=== PATIENT | male | born 2000 | race Caucasian/White ===

== ENCOUNTER 2019-10-25 07:46 | Day surgery (SDC) | payer BC ==
[2019-10-24 11:39] VITALS: BMI 37.3
[2019-10-25] MEDS ORDERED: Midazolam HCl 2 mg/2 ml Vial ONE ×2 (09:50→11:12)
[2019-10-25] MEDS ORDERED: Scopolamine 1.5 mg/72 hour Patch ONE (09:51)
[2019-10-25] MEDS ORDERED: Rocuronium Bromide 10 MG/ML (10ML VIAL) ONE (10:51)
[2019-10-25] MEDS ORDERED: Lidocaine 1% PF 5 ML VIAL ONE (10:51)
[2019-10-25] MEDS ORDERED: PROPOFOL 200 MG/20 ML VIAL ONE ×2 (10:51)
[2019-10-25] MEDS ORDERED: Dexamethasone 20 MG/5 ML VIAL ONE (10:51)
[2019-10-25] MEDS ORDERED: Glycopyrrolate 0.2 MG/ML 5 ML SYRINGE ONE (10:51)
[2019-10-25] MEDS ORDERED: Ondansetron PF 4 MG/2 ML Vial ONE (10:51)
[2019-10-25] MEDS ORDERED: Fentanyl 100 MCG/2 ML VIAL ONE (11:12)
[2019-10-25] MEDS ORDERED: HYDROmorphone 0.5 MG/0.5 ML SYRINGE ONE ×2 (11:12→14:04)
[2019-10-25] MEDS ORDERED: Lidocaine 1% w/Epinephrine 1:100K 20 ML VIAL ONE (11:14)
[2019-10-25] MEDS ORDERED: Bupivacaine 0.25% HCL 30 ML VIAL ONE (11:14)
[2019-10-25] MEDS ORDERED: Sodium Chloride 0.9% 0 ML ONE (11:15)
[2019-10-25] MEDS ORDERED: Bacitracin Zinc Ointment 30 gm TUBE ONE (11:15)
[2019-10-25] MEDS ORDERED: Ciprofloxacin 0.2% Otic 1 DROP CON ONE (11:15)
[2019-10-25] MEDS ORDERED: Propofol 500 MG/50 ML VIAL ONE (11:34)
[2019-10-25] MEDS ORDERED: Mupirocin 2% Ointment 22 GM Tube TOP SCH (12:00)
[2019-10-25] MEDS ORDERED: EPINEPHrine 1 MG/ML AMP ONE (12:15)
[2019-10-25] MEDS ORDERED: HYDROcodone/Acetaminophen 5/325 mg Tablet ONE (15:14)
--- NOTE | 2019-10-26 13:11 | OP ---
DATE OF PROCEDURE: 10/25/2019 PROCEDURE: Left tympanoplasty and left cartilage graft and right tympanoplasty and middle ear exploration. PROCEDURE IN DETAIL: Following induction of adequate general anesthetic, the patient's left ear was prepped and draped in a sterile fashion. The external canal and postauricular area were injected with 1% lidocaine with 1:100,000 epinephrine. The microscope was brought in and the ear canal was cleaned. The tympanic membrane was examined and found to have 60% perforation and included the pars tensa and extends into the pars flaccida. With the operative microscope, the area was cleaned of cerumen and suctioned and the rim of the perforation was scored. Next, a tympanomeatal flap was developed using the operative microscope and the round knife. The tympanic membrane was incised in the ear canal at the level of the ear canal anterolateral to the anulus. After the tympanomeatal flap was incised, the flap was elevated with the use of round knife and three suction. At this point, the anulus was viewed and a small incision was made in the middle ear mucosa using a Sarah needle and then a gimmick was used to elevate the tympanomeatal flap and the malleus was identified, as well as the chorda tympani with care taken not to dissect on the chorda tympani. The incudostapedial joint was also identified and significant scar bands were found in the middle ear, restricting the ossicular chain movement. At this point, the scar tissue and adhesions were lysed and removed and the ossicular chain was mobilized. Next, the rest of the tympanomeatal flap was elevated from the malleus anterolaterally and the entire view of the middle ear was inspected and the malleus was found to be in a retracted position. Attention was then turned towards the middle ear and small pieces of Gelfoam were used to fill the middle ear space to just medial to the level of the malleus and avoiding packing around the incudostapedial joint and the stapes. At this point, the operative microscope was removed and attention was directed toward the tragus. An incision was made on the medial posterior aspect of the tragus, transecting the skin and the cartilage. The cartilage was then freed from the adjacent tissues anterior and posteriorly with blunt dissection with iris scissors. A 1 cm2 area of cartilage with perichondrium was removed with iris scissors and with two forceps. The wound was then irrigated and no bleeding was seen, and then interrupted simple 5-0 fast-absorbing plain gut sutures were placed. The cartilage was then thinned and trimmed of the perichondrium to the appropriate dimensions and then to roughly 60% of its original thickness. The ear was found to have no bleeding and the eustachian tube and middle ear were still packed with Gel-Foam. The cartilage graft was then placed over the Gel-Foam and positioned, so that all the edges were covering the current perforation and were medial to the existing tympanic membrane remnant, however, lateral to the ossicles and all the middle ear contents. When the graft was properly positioned, the residual tympanic membrane was then replaced and all the edges were found to be close to the original incision location. At this point, a small patch of 2- layer A-cell was placed over the tympanic membrane and the entire perforation, and then Gel-Foam was packed over this area, this vascular strip and the external ear canal and then Bactroban ointment was placed and then more Gel-Foam packing was also placed. No bleeding was seen. At this point of the operation, the patient was tolerating the procedure well. The patient's drapes were then removed and the patient positioned toward the left side and the right ear was again prepped and draped in a sterile fashion using the same attention on the previous ear. The external ear canal was injected with 1% lidocaine with 1:100,000 epinephrine and the microscope was brought in and external ear canal cleaned, TM examined and found to have roughly 30% perforation. At this point, the Sarah needle was used to incise the perforation circumferentially and then an alligator and cupped forceps were used to remove small amount of tissue from the eardrum. The rest of pars tensa and pars flaccida were found to be healthy and intact. At this point, there was no bleeding seen on the eardrum. A small piece of two-layered A-cell was placed over the entire edge of the tympanic membrane covering the perforation entirely. Small bits of Gelfoam were then used to place and pack the graft in its place and then Bactroban ointment was also used to pack the rest of the external ear in order to keep the A-cell in place. The patient tolerated the procedure well and was transported to the PACU in stable condition. All counts were correct at the conclusion of the procedure. There was no specimen and there was no complications. Job ID: [id number] [id number]
== END 2019-10-25 17:05 | disposition home or self-care (01) ==
LOC: SDC 07:46
PROVIDERS: ATTEND Student in an Organized Health Care Education/Training Program
PROC: 09U877Z Supplement Left Tympanic Membrane with Autologous Tissue Substitute, Via Natural or Artificial Opening (ICD-10-PCS; principal; 2019-10-25)
PROC: 09U77JZ Supplement Right Tympanic Membrane with Synthetic Substitute, Via Natural or Artificial Opening (ICD-10-PCS; principal; 2019-10-25)
DX: H72.01 Central perforation of tympanic membrane, right ear (principal); H72.92 Unspecified perforation of tympanic membrane, left ear; H90.2 Conductive hearing loss, unspecified; H74.09 Tympanosclerosis, unspecified ear; F17.200 Nicotine dependence, unspecified, uncomplicated
CPT/HCPCS: J0171; J0690; J1100; J1170; J2001; J2250; J2405; J2704; J3010; J3490; S0020